=== PATIENT | female | born 1940 | race American Indian/Alaskan Native ===

== ENCOUNTER 2018-06-18 10:01 | Emergency (ER) | payer OTHER ==
[2018-06-18 10:35] VITALS: RESP 18
[2018-06-18] MEDS: Albuterol-Ipratrop 3 mg / 0.5 (3 ml) UD IH SCH ×3 (11:15→11:51)
--- NOTE | 2018-06-18 11:15 | C.PDOC ---
History Of Present Illness 78-year-old female presents to the ED with c/o COPD exacerbation for one week. Patient states her symptoms have not improved with routine medications. Patient denies fever, chills, chest pain. Patient denies home oxygen use. CO COPD EXAC X 1 WEEK. NO IMPROVE W ROUTINE MEDS. NO FEVER, CP. DENIES HOME O2 USE. EXAM NONTOXIC NARD LUNGS SPEAKING FULL SENTENCES B/L EXP WHEEZE OCC RHONCHI NO RETRACTIONS RRR REMAINDER NEG MDM COPD EXAC. FEELS BETTER W O2, UNK BASELINE O2. neb steroid CXR Time Seen by Provider: 06/18/18 10:50 Chief Complaint (Nursing): Cough, Cold, Congestion History Per: Patient History/Exam Limitations: no limitations Onset/Duration Of Symptoms: Other (one week ) Current Symptoms Are (Timing): Still Present Past Medical History Reviewed: Historical Data, Nursing Documentation, Vital Signs Vital Signs: Last Vital Signs Temp 98.9 F 06/18/18 10:30 Pulse 83 06/18/18 10:30 Resp 18 06/18/18 10:30 BP 156/83 H 06/18/18 10:30 Pulse Ox 94 L 06/18/18 10:30 Primary Care Provider: FAMILY PROVIDER,NO - Medical History PMH: COPD Surgical History: No Surg Hx Family History: States: Unknown Family Hx - Social History Hx Alcohol Use: No Hx Substance Use: No - Immunization History Hx Tetanus Toxoid Vaccination: No Hx Influenza Vaccination: No Hx Pneumococcal Vaccination: No Review Of Systems Constitutional: Negative for: Fever, Chills Cardiovascular: Negative for: Chest Pain Respiratory: Positive for: Other (COPD exacerbation ) Physical Exam - Physical Exam Appears: Non-toxic, No Acute Distress Skin: Normal Color, Warm, Dry Head: Atraumatic, Normacephalic Eye(s): bilateral: Normal Inspection Oral Mucosa: Moist Neck: Supple Chest: Symmetrical, No Deformity, No Tenderness Cardiovascular: Rhythm Regular, No Murmur Respiratory: No Rales, No Rhonchi, No Wheezing, Other (LUNGS SPEAKING FULL SENTENCES B/L EXP WHEEZE OCC RHONCHI NO RETRACTIONS) Extremity: Normal ROM Neurological/Psych: Oriented x3, Normal Speech, Normal Cognition ED Course And Treatment ECG: Interpreted By Me ECG Rhythm: Sinus Rhythm ECG Interpretation: Normal Rate From EC O2 Sat by Pulse Oximetry: 94 Pulse Ox Interpretation: Normal - Radiology CXR: Interpreted by Me CXR Interpretation: Yes: No Acute Disease Progress Note: Bloodwork, CXR, EKG ordered and reviewed. Albuterol INH and Prednisone PO given. Reevaluation Time: 12:18 Reassessment Condition: Improved Medical Decision Making Medical Decision Making: COPD EXAC. FEELS BETTER W O2, UNK BASELINE O2. neb steroid CXR Disposition Counseled Patient/Family Regarding: Studies Performed, Diagnosis, Need For Followup, Rx Given - Disposition Referrals: YOUR,PMD [Other] Disposition: HOME/ ROUTINE Disposition Time: 12:18 Condition: IMPROVED Prescriptions: Benzonatate [Tessalon Perles] 200 mg PO TID PRN #15 sgl PRN Reason: Cough predniSONE [Prednisone] 60 mg PO DAILY #12 tab Instructions: Exacerbation of COPD (DC) Forms: Offsite Care Resources ([facility]) - Clinical Impression Clinical Impression: COPD exacerbation - Scribe Statement The provider has reviewed the documentation as recorded by the Scribe (Tri Carrillo) Provider Attestation: All medical record entries made by the Scribe were at my direction and personally dictated by me. I have reviewed the chart and agree that the record accurately reflects my personal performance of the history, physical exam, medical decision making, and the department course for this patient. I have also personally directed, reviewed, and agree with the discharge instructions and disposition.
[2018-06-18] MEDS ORDERED: Albuterol-Ipratrop 3 mg / 0.5 (3 ml) UD ONE ×2 (11:19→11:34)
[2018-06-18 12:53] VITALS: BP 147/75; PULSE 88; TEMP 97.9
--- NOTE | 2018-06-18 13:16 | RAD ---
Date of service: 06/18/2018 HISTORY: COPD EXAC COMPARISON: No prior. TECHNIQUE: Chest PA and lateral views FINDINGS: LUNGS: No active pulmonary disease. PLEURA: No significant pleural effusion identified. No pneumothorax apparent. CARDIOVASCULAR: No aortic atherosclerotic calcification present. Normal cardiac size. No pulmonary vascular congestion. OSSEOUS STRUCTURES: No significant abnormalities. VISUALIZED UPPER ABDOMEN: Normal. OTHER FINDINGS: None. IMPRESSION: No active disease.
[2018-06-18 21:03] VITALS: O2SAT 94
--- NOTE | 2018-06-20 00:57 | CARD ---
APPROVED REPORT Date of service: 06/18/2018 EKG Measurement Heart [id number] <Conclusion> Normal sinus rhythm Nonspecific ST and T wave abnormality Abnormal ECG
== END 2018-06-18 13:05 | disposition home or self-care (01) ==
LOC: C.ER 10:01
DX: J44.1 Chronic obstructive pulmonary disease with (acute) exacerbation (principal)